=== PATIENT | female | born 1950 | race Caucasian/White ===

== ENCOUNTER 2016-06-01 05:57 | Day surgery (SDC) | payer OTHER ==
--- NOTE | ~2016-06-01 | EGD ---
EGD REPORT [facility] [address] [address] NAME: NUBIA LOPEZ : [birth year] STATUS : [facility]#: [id number] AGE: 65 ADM/REG DATE : 06/01/16 MR#: [id number] REPORT SERV DATE: 06/01/16 DICTATED BY: REBECCA DOMINGUEZ DATE: 06/01/16 REPORT STATUS : Draft TRANSCRIBED BY: [employer] DATE: 06/01/16 [facility] Patient Name: Nubia Lopez Date of : 1950 Attending MD: REBECCA DOMINGUEZ, Procedure Date No Time: 06/01/2016 Procedure: Colonoscopy Indications: Screening for colorectal malignant neoplasm Referring MD: Shellie Phelps Medicines: Monitored Anesthesia Care Complications: No immediate complications. Estimated blood loss: None. Procedure: Pre-Anesthesia Assessment: - ASA Grade Assessment: II - A patient with mild systemic disease. After I obtained informed consent, the scope was passed under direct vision. Throughout the procedure, the patient's blood pressure, pulse, and oxygen saturations were monitored continuously. The PCF H190L [id number] was introduced through the anus and advanced to the cecum, identified by appendiceal orifice and ileocecal valve. The colonoscopy was performed without difficulty. The patient tolerated the procedure well. The quality of the bowel preparation was good. Findings: The perianal and digital rectal examinations were normal. Two sessile polyps were found in the ascending colon. The polyps were 1 to 2 mm in size. These polyps were removed with a cold biopsy forceps. Resection and retrieval were complete. Verification of patient identification for the specimen was done. Estimated blood loss was minimal. The exam was otherwise without abnormality on direct and retroflexion views. Impression: - Two 1 to 2 mm polyps in the ascending colon. Resected and retrieved. - The examination was otherwise normal on direct and retroflexion views. Recommendation: - Patient has a contact number available for emergencies. The signs and symptoms of potential delayed complications were discussed with the patient. Return to normal activities tomorrow. Written discharge instructions were provided to the patient. - Return to previous diet. EGD REPORT [facility] [address] [address] NAME: NUBIA LOPEZ : [birth year] STATUS : [facility]#: [id number] AGE: 65 ADM/REG DATE : 06/01/16 MR#: [id number] REPORT SERV DATE: 06/01/16 DICTATED BY: REBECCA DOMINGUEZ DATE: 06/01/16 REPORT STATUS : Draft TRANSCRIBED BY: [employer] DATE: 06/01/16 - Continue present medications. - Await pathology results. - Repeat colonoscopy for surveillance based on pathology results. Procedure Code(s): --- Professional --- 86004, Colonoscopy, flexible, proximal to splenic flexure; with biopsy, single or multiple Diagnosis Code(s): --- Professional --- D12.2, Benign neoplasm of ascending colon Z12.11, Encounter for screening for malignant neoplasm of colon CPT copyright 2013 [employer]. All rights reserved. The codes documented in this report are preliminary and upon slot machine key person review may be revised to meet current compliance requirements. REBECCA DOMINGUEZ, 06/01/2016 8:07 AM Number of Addenda: 0 Note Initiated On: 06/01/2016 7:33 AM Scope Withdrawal Time 0 hours 12 minutes 53 seconds [id number] [facility] [facility] [address] [place] [id number]
--- NOTE | ~2016-06-01 | EGD ---
EGD REPORT [address] [address] NAME: NUBIA LOPEZ : [birth year] STATUS : REG [facility]#: [id number] AGE: 65 ADM/REG DATE : 06/01/16 MR#: [id number] REPORT SERV DATE: 06/01/16 DICTATED BY: REBECCA DOMINGUEZ DATE: 06/01/16 REPORT STATUS : Draft TRANSCRIBED BY: [employer] DATE: 06/01/16 [facility] Patient Name: Nubia Lopez Date of : 1950 Attending MD: REBECCA DOMINGUEZ, Procedure Date No Time: 06/01/2016 Procedure: Upper GI endoscopy Indications: Esophageal reflux Referring MD: Shellie Phelps Medicines: Monitored Anesthesia Care Complications: No immediate complications. Estimated blood loss: None. Procedure: After obtaining informed consent, the endoscope was passed under direct vision. Throughout the procedure, the patient's blood pressure, pulse, and oxygen saturations were monitored continuously. The PCF H190L [id number] was introduced through the mouth, and advanced to the second part of duodenum. The upper GI endoscopy was accomplished without difficulty. The patient tolerated the procedure well. Findings: The esophagus was normal. Multiple dispersed, small non-bleeding erosions were found in the entire examined stomach. There were no stigmata of recent bleeding. Biopsies were taken with a cold forceps for histology. Verification of patient identification for the specimen was done. Estimated blood loss was minimal. The cardia and gastric fundus were normal on retroflexion. The examined duodenum was normal. Impression: - Normal esophagus. - Non-bleeding erosive gastropathy. Biopsied. - Normal examined duodenum. Recommendation: - Patient has a contact number available for emergencies. The signs and symptoms of potential delayed complications were discussed with the patient. Return to normal activities tomorrow. Written discharge instructions were provided to the patient. - Return to previous diet. - Continue present medications. - Await pathology results. Procedure Code(s): --- Professional --- 16475, Esophagogastroduodenoscopy, flexible, transoral; EGD REPORT [address] [address] NAME: NUBIA LOPEZ : [birth year] STATUS : [facility] [place] PAT#: [id number] AGE: 65 ADM/REG DATE : 06/01/16 MR#: [id number] REPORT SERV DATE: 06/01/16 DICTATED BY: REBECCA DOMINGUEZ DATE: 06/01/16 REPORT STATUS : Draft TRANSCRIBED BY: [employer] DATE: 06/01/16 with biopsy, single or multiple Diagnosis Code(s): --- Professional --- K31.9, Disease of stomach and duodenum, unspecified K21.9, Gastro-esophageal reflux disease without esophagitis CPT copyright 2013 [employer]. All rights reserved. The codes documented in this report are preliminary and upon men's locker room attendant review may be revised to meet current compliance requirements. REBECCA DOMINGUEZ, 06/01/2016 8:06 AM Number of Addenda: 0 Note Initiated On: 06/01/2016 7:34 AM Scope Withdrawal Time 0 hours 0 minutes [address] [place] [id number]
[~2016-06-01 05:57] MED LIST: ATEN50 PO; NEUR300 PO; PRILO PO; REQUIP2 PO
== END 2016-06-01 23:59 | disposition home or self-care (01) ==
LOC: DMU 05:57
PROVIDERS: Internal Medicine Gastroenterology
PROC: 0DB68ZX Excision of Stomach, Via Natural or Artificial Opening Endoscopic, Diagnostic (ICD-10-PCS; principal; 2016-06-01 08:00)
PROC: 0DBK8ZX Excision of Ascending Colon, Via Natural or Artificial Opening Endoscopic, Diagnostic (ICD-10-PCS; 2016-06-01 08:00)
DX: Z12.11 Encounter for screening for malignant neoplasm of colon (principal); D12.2 Benign neoplasm of ascending colon; K29.50 Unspecified chronic gastritis without bleeding; K21.9 Gastro-esophageal reflux disease without esophagitis; I10 Essential (primary) hypertension; G25.81 Restless legs syndrome; M19.90 Unspecified osteoarthritis, unspecified site; Z88.0 Allergy status to penicillin; Z88.8 Allergy status to other drugs, medicaments and biological substances; Z79.899 Other long term (current) drug therapy; Z96.612 Presence of left artificial shoulder joint; Z98.890 Other specified postprocedural states
CPT/HCPCS: 88305; 88342